=== PATIENT | female | born 1950 | race Caucasian/White ===

== ENCOUNTER → 2017-09-24 | Outpatient (CLI) | payer MEDICARE, OTHER ==
--- NOTE | 2017-09-24 12:08 | Diagnostic Imaging Report ---
PROCEDURE: X-RAY CHEST, TWO VIEWS COMPARISON: None. INDICATIONS: CHRONIC COUGH FINDINGS: The lungs are well-inflated. No focal airspace consolidation, pleural effusion, or pneumothorax. Mild atherosclerotic calcification of the thoracic aorta. Normal heart size. No pulmonary edema. No acute osseous abnormality. Surgical clips project over the upper abdomen on the lateral radiograph, likely related to prior cholecystectomy. CONCLUSION: No acute cardiopulmonary abnormality. Dictated by: Vaibhav Schmitz M.D. on 09/24/2017 at 12:12 Electronically approved by: Vaibhav Schmitz M.D. on 09/24/2017 at 12:12
== END ==
LOC: RAD 11:39
PROVIDERS: ATTEND Family Medicine
DX: R05 Cough (principal)
CPT/HCPCS: 71046

== ENCOUNTER → 2017-11-17 | Outpatient (CLI) | payer MEDICARE, OTHER ==
[~2017-11-17] MED LIST: LORAZEPAM INJ 2 MG/ML VIAL ONE
--- NOTE | 2017-11-17 13:57 | Diagnostic Imaging Report ---
EXAMINATION: MRI of the brain without contrast. HISTORY: Chronic headaches, history of uterine cancer, numbness in feet and hands. COMPARISON: None. TECHNIQUE: Sagittal T2; axial DWI, T2, FLAIR, T1-IR, T2 gradient echo; coronal FLAIR. IMAGE QUALITY: Adequate. FINDINGS: Parenchyma: 1. Scattered and mildly confluent periventricular and pontine white matter T2 and FLAIR hyperintense foci, most likely nonspecific chronic microvascular ischemic changes. 2. Small chronic lacunar infarct in the body of the left caudate nucleus. 3. No mass, hemorrhage, acute or chronic infarcts. Skull: Unremarkable. Vessels: Expected flow voids present in the major arteries and dural sinuses. Extra-axial spaces: No abnormal signal intensity or mass effect. Brain volume: Within normal limits for age. Ventricles: No hydrocephalus or displacement. Foramen magnum: Unremarkable. Sella: Unremarkable. Paranasal / mastoid sinuses: Mild mucosal inflammatory thickening of the left frontal, bilateral ethmoidal and right maxillary sinuses, otherwise clear IMPRESSION: 1. Mild chronic microvascular ischemic changes, otherwise no intracranial abnormalities, particularly no evidence of metastatic disease. 2. Minimal mucosal inflammatory thickening of the paranasal sinuses. Signed by: Dr. Addie Perez M.D. on 11/17/2017 1:54 PM
== END ==
LOC: MRI 09:46
PROVIDERS: ATTEND Family Medicine
DX: R51 Headache (principal)
CPT/HCPCS: 70551; J2060

== ENCOUNTER → 2018-09-19 | Outpatient (CLI) | payer MEDICARE, OTHER ==
--- NOTE | 2018-09-19 14:03 | Diagnostic Imaging Report ---
EXAMINATION: CHEST 2 VIEWS INDICATION: Cough. Chest pain ^BRONCHITIS; R/O PNEUMONIA COMPARISON: None FINDINGS: TUBES and LINES: None. LUNGS: Lungs are well inflated. Perihilar peribronchial hazy opacity could be due to bronchitis There is no evidence of pneumonia or pulmonary edema. PLEURA: No pleural effusion or pneumothorax. HEART AND MEDIASTINUM: The cardiomediastinal silhouette is unremarkable. BONES AND SOFT TISSUES: No acute osseous lesion. Soft tissues are unremarkable. UPPER ABDOMEN: No free air under the diaphragm. IMPRESSION: Perihilar peribronchial hazy opacity could be due to bronchitis Signed by: Dr. Gallo Edwards M.D. on 09/19/2018 2:00 PM
== END ==
LOC: RAD 13:15
PROVIDERS: ATTEND Family Medicine
DX: R05 Cough (principal); J40 Bronchitis, not specified as acute or chronic
CPT/HCPCS: 71046

== ENCOUNTER → 2018-11-18 | Outpatient (CLI) | payer MEDICARE, OTHER ==
--- NOTE | 2018-11-18 14:50 | Diagnostic Imaging Report ---
Chest radiographs, 2 views Clinical indication: Cough, bronchitis Comparison: 09/19/2018 Findings: The heart is within normal limits in size. The mediastinal and hilar contours are unremarkable. There is again evidence of mild perihilar peribronchial thickening, left greater than right. There is no focal consolidation, sizable pleural effusion, or pneumothorax. No acute osseous abnormalities are identified. Impression: Mild perihilar peribronchial thickening which may be secondary to bronchitis. No focal consolidation. Signed by: James Live MD on 11/18/2018 2:46 PM
== END ==
LOC: RAD 13:46
PROVIDERS: ATTEND Family Medicine
DX: J40 Bronchitis, not specified as acute or chronic (principal)
CPT/HCPCS: 71046

== ENCOUNTER 2019-08-19 16:21 | Emergency (ER) | payer MEDICARE, OTHER ==
[~2019-08-19] VITALS: Ht 162.6 cm; Wt 83.9 kg
--- OUTSIDE RECORDS SUMMARY | 2019-08-19 16:23 | XMS REPORT ---
Author Author [facility] Organization [facility] Address 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 Allergies, Adverse Reactions, Alerts This patient has no known allergies or adverse reactions. Medications This patient has no known medications. Procedures This patient has no known procedures. Results Test Description Test Time Test Comments Results Result Comments Source CHEST 2 VIEWS 2019-01-11 15:19:00 [place] [address] Patient Name: EDUARDO BUTLER MR #: [id number] : 1950 Age/Sex: 68/F Req #: [id number] Adm Physician: Ordered by: REYNALDO CHANCE MD Report #: [id number] Location: [facility] Room/Bed: Procedure: [id number] DX/CHEST 2 VIEWS Exam Date: 01/11/19 Exam Time: 5087 REPORT STATUS: Signed EXAMINATION: CHEST 2 VIEWS INDICATION: COPD COMPARISON: Chest radiograph of 11/18/2018 FINDINGS: LINES/TUBES:None LUNGS:The lungs are well-inflated. No focal consolidation or pulmonary edema. PLEURA:No pleural effusion or pne umothorax. MEDIASTINUM:The cardiomediastinal silhouette appears normal in size and shape. BONES/SOFT TISSUES:No acute osseous injury. ABDOMEN:No free air under the diaphragm. IMPRESSION: No focal pneumonia or pulmonary edema. Signed by: Harish Mayer MD on 01/11/2019 3:20 PM Dictated By: HARISH MAYER MD 152 Transcribed By: ALVINO on 01/11/191519 COPY TO: REYNALDO CHANCE MD CHEST 2 VIEWS 2018-11-18 14:45:00 [place] [address] Patient Name: EDUARDO BUTLER MR #: [id number] : 1950 Age/Sex: 68/F Req #: [id number] Adm Physician: Ordered by: REYNALDO CHANCE MD Report #: [id number] Location: [facility] Room/Bed: Procedure: [id number] DX/CHEST 2 VIEWS Exam Date: 11/18/18 Exam Time: 1420 REPORT STATUS: Signed Chest radiographs, 2 views Clinical indication: Cough, bronchitis Comparison: 09/19/2018 Findings: The heart is within normal limits in size. The mediastinal and hilar contours are unremarkable. There is again evidence of mild perihilar peribronchial thickening, left greater than right. There is no focal consolidation, sizable pleural effusion, or pneumothorax. No acute osseous abnormalities are identified. Impression: Mild perihilar peribronchial thickening which may be secondary to bronchitis. No focal consolidation. Signed by: James Virgen MD on 11/18/2018 2:46 PM Dictated By: JAMES VIRGEN MD 1446 Transcribed By: ALVINO on 11/18/18 144 COPY TO: REYNALDO CHANCE MD CHEST 2 VIEWS 2018-09-19 13:59:00 [place] [address] Patient Name: EDUARDO BUTLER MR #: [id number] : 1950 Age/Sex: 68/F Req #: [id number] Adm Physician: Ordered by: REYNALDO CHANCE MD Report #: [id number] Location: [facility] Room/Bed: Procedure: [id number] DX/CHEST 2 VIEWS Exam Date: Exam Time: REPORT STATUS: Signed EXAMINATION: CHEST 2 VIEWS INDICATION: Cough. Chest pain BRONCHITIS; R/O PNEUMONIA COMPARISON: None FINDINGS: TUBES and LINES: None. LUNGS: Lungs are well inflated. Perihilar peribronchial hazy opacity could be due to bronchitis There is no evidence of pneumonia or pulmonary edema. PLEURA: No pleural effusion or pneumothorax. HEART AND MEDIASTINUM: The cardiomediastinal silhouette is unremarkable. BONES AND SOFT TISSUES: No acute osseous lesion. Soft tissues are unremarkable. UPPER ABDOMEN: No free air under the diaphragm. IMPRESSION: Perihilar peribronchial hazy opacity could be due to bronchitis Signed by: Dr. Tammi Edwards M.D. on 09/19/2018 2:00 PM Dictated By: TAMMI EDWARDS MD, MD 1400 Transcribed By: ALVINO on 09/19/18 1400 COPY TO: REYNALDO CHANCE MD MRI BRAIN WO 2017-11-17 13:23:00 [place] [address] Patient Name: EDUARDO BUTLER MR #: [id number] : 1950 Age/Sex: 67/F Req #: [id number] [facility] Physician: Ordered by: REYNALDO CHANCE MD Report #: [id number] Location: MRI Room/Bed: Procedure: [id number] MRI/MRI BRAIN WO Exam Date: Exam Time: REPORT STATUS: Signed EXAMINATION: MRI of the brain without contrast. HISTORY: Chronic headaches, history of uterine cancer, numbness in feet and hands. COMPARISON: None. TECHNIQUE: Sagittal T2; axial DWI, T2, FLAIR, T1-IR, T2 gradient echo; coronal FLAIR. IMAGE QUALITY: Adequate. FINDINGS: Parenchyma: 1. Scattered and mildly confluent periventricular and pontine white matter T2 and FLAIR hyperintense foci, most likely nonspecific chronic microvascular ischemic changes. 2. Small chronic lacunar infarct in the body of the left caudate nucleus. 3. No mass, hemorrhage, acute or chronic infarcts. Skull: Unremarkable. Vessels: Expected flow voids present in the major arteries and dural sinuses. Extra-axial spaces: No abnormal signal intensity or mass effect. Brain volume: Within normal limits for age. Ventricles: No hydrocephalus or displacement. Foramen magnum: Unremarkable. Sella: Unremarkable. Paranasal / mastoid sinuses: Mild mucosal inflammatory thickening of the left frontal, bilateral ethmoidal and right maxillary sinuses, otherwise clear IMPRESSION: 1. Mild chronic microvascular ischemic changes, otherwise no intracranial abnorma lities, particularly no evidence of metastatic disease. 2. Minimal mucosal inflammatory thickening of the paranasal sinuses. Signed by: Dr. Eliza Perez M.D. on 11/17/2017 1:54 PM Dictated By: ELIZA PEREZ MD 1232 Transcribed By: ALVINO on 11/17/17 8443 COPY TO: REYNALDO CHANCE MD CHEST 2 VIEWS 2017-09-24 12[facility]12:[facility] [place] [place] [address] Patient Name: EDUARDO BUTLER MR #: [id number] : 1950 Age/Sex: 67/F Req #: [id number] Adm Physician: Ordered by: REYNALDO CHANCE MD Report #: [id number] Location: [facility] Room/Bed: Procedure: [id number] DX/CHEST 2 VIEWS Exam Date: 09/24/17 Exam Time: 1130 REPORT STATUS: Signed PROCEDURE: X-RAY CHEST, TWO VIEWS COMPARISON: None. INDICATIONS: CHRONIC COUGH FINDINGS: The lungs are well-inflated. No focal airspace consolidation, pleural effusion, or pneumothorax. Mild atherosclerotic calcification of the thoracic aorta. Normal heart size. No pulmonary edema. No acute osseous abnormality. Surgical clips project over the upper abdomen on the lateral radiograph, likely related to prior cholecystectomy. CONCLUSION: No acute cardiopulmonary abnormality. Dictated by: Candie Chambers M.D. on 09/24/2017 at 12:12 Electronically approved by: Candie Chambers M.D. on 09/24/2017 at 12:12 Dictated By: CANDIE CHAMBERS MD 1212 Transcribed By: RAVINDER on 09/24/17 1212 COPY TO: REYNALDO CHANCE MD
--- NOTE | 2019-08-19 16:38 | Emergency Department Note ---
History of Present Illnes History of Present Illness History of Present Illness This is a 69 year old female instructed by PCP to come to the ED for evaluation of elevated BS of 700+ from OSH. Seen at bedside asymptomatic . [employer] Required: No Onset (how long ago): day(s) Radiation: non-radiation Severity: mild Onset quality: gradual Duration (how long): day(s) (1) Timing of current episode: constant Progression: unchanged Chronicity: new Relieving factors: none Exacerbating factors: none Associated symptoms: denies other symptoms Treatments prior to arrival: none Past Medical/Family History Physician Review I have reviewed the patient's past medical and family history. Any updates have been documented here. Past Medical History Recent Fever: No Clinical Suspicion of Infectio: No New/Unexplained Change in Ment: No Past Medical History: Hypertension Other Surgery: HEMORRHOIDECTOMY Social History Smoking Cessation: Never Smoker Alcohol Use: None Any Illegal Drug Use: No Other Last Tetanus: UTD Review of Systems Review of Systems Constitutional: no symptoms EENTM: no symptoms Cardiovascular: no symptoms Respiratory: no symptoms Gastrointestinal: no symptoms Genitourinary: no symptoms Musculoskeletal: no symptoms Neurological: no symptoms Psychological: no symptoms Endocrine: no symptoms Hematological/Lymphatic: no symptoms Review of other systems All other systems reviewed and negative. Physical Exam Related Data Allergies: Coded Allergies: No Known Allergies (Unverified , 12/20/14) Physical Exam CONSTITUTIONAL Constitutional: well-developed, well-nourished HENT HENT: normocephalic, atraumatic, oropharynx clear/moist, nose normal HENT L/R: left ext ear normal, right ext ear normal EYES Eyes: PERRL, conjunctivae normal NECK Neck: ROM normal PULMONARY Pulmonary: effort normal, breath sounds normal CARDIOVASCULAR Cardiovascular: regular rhythm, heart sounds normal, capillary refill normal, normal rate GASTROINTESTINAL Abdominal: soft, nontender, bowel sounds normal GENITOURINARY Genitourinary: exam deferred SKIN Skin: warm, dry MUSCULOSKELETAL Musculoskeletal: ROM normal NEUROLOGICAL Neurological: alert, oriented x 3, no gross motor or sensory deficits PSYCHOLOGICAL Psychological: mood/affect normal, judgement normal Results Laboratory Lab results reviewed: Yes Laboratory comments CBC: wnl CMP : Glucose elevated at 430 Critical Care Time Subsequent provider I assumed direction of critical care for this patient from another provider of my specialty. Assessment & Plan Assessment & Plan Final Impression: (1) Hyperglycemia Assessment & Plan Patient given bolus of IV 1 L NS fluid with 10 U insulin. repeat BS with improvement Depart Disposition: HOME, SELF-CARE Last Vital Signs Date Time Temp Pulse Resp B/P (MAP) Pulse Ox O2 Delivery O2 Flow Rate FiO2 08/19/19 17:40 99 08/19/19 16:32 97.8 75 18 158/75 Home Meds No Active Prescriptions or Reported Meds Medications in the ED Sodium Chloride 1,000 ml @ ud STK-MED ONCE .ROUTE ; Start 08/19/19 at 16:44; Stop 08/19/19 at 16:39; Status DC Sodium Chloride 1,000 ml @ 0 mls/hr Q0M STAT IV ; Start 08/19/19 at 16:39; Stop 08/19/19 at 16:40; Status DC Insulin Human Regular 100 unit STK-MED ONCE .ROUTE ; Start 08/19/19 at 16:45; Stop 08/19/19 at 16:40; Status DC Insulin Human Regular 10 unit ONCE STAT IV ; Start 08/19/19 at 16:39; Stop 08/19/19 at 16:49; Status DC Sodium Chloride 1,000 ml @ 0 mls/hr Q0M STAT IV Last administered on 08/19/19at 17:06; Admin Dose 999 MLS/HR; Start 08/19/19 at 16:50; Stop 08/19/19 at 16:51; Status DC Insulin Human Regular 10 unit ONCE STAT IV Last administered on 08/19/19at 17:06; Admin Dose 10 UNIT; Start 08/19/19 at 16:50; Stop 08/19/19 at 17:03; Status DC YANG COLLINS DO August 19, 2019 16:38
[2019-08-19] MEDS ORDERED: INSULIN REGULAR, HUMAN 100 UNIT/1 ML 3ML VIAL IV STA ×2 (16:39→16:50)
[2019-08-19] MEDS ORDERED: SODIUM CHLORIDE 0.9% 1000ML 1,000 ML IV STA ×2 (16:39→16:50)
--- NOTE | 2019-08-19 16:39 | NUR ---
PT REFUSED MEDICATIONS, IV AND FLUIDS AND LAB WORKS. STATED SHE ONLY WANTED HER GLUCOSE CHECKED PER HER PCP. DR COLLINS NOTIFIED. AFTER TAKING PATIENT REFUSAL FORM PT WAS ON THE PHONE WITH HER PCP AND DECIDED TO HAVE THE LAB, MEDS AND FLUIDS.
[2019-08-19] MEDS ORDERED: SODIUM CHLORIDE 0.9% 1000ML 1,000 ML ONE (16:44)
[2019-08-19] MEDS ORDERED: INSULIN REGULAR, HUMAN 100 UNIT/1 ML 3ML VIAL ONE (16:45)
[2019-08-19 17:40] VITALS: BP 140/78
== END 2019-08-19 17:40 | disposition home or self-care (01) ==
LOC: FSED 16:21
DX: R73.9 Hyperglycemia, unspecified (principal); I10 Essential (primary) hypertension
CPT/HCPCS: 80053; 81003; 85025; 96374; 99283; J1817; J7030

== ENCOUNTER → 2019-10-02 | Outpatient (CLI) | payer MEDICARE, OTHER ==
[~2019-10-02] MED LIST changes: +IOPAMIDOL 370 MG/ML 200 ML INFUS..BTL INJ ONE; -LORAZEPAM INJ 2 MG/ML VIAL ONE; +SODIUM CHLORIDE 0.9% 50ML 50 ML ONE
[2019-10-02 15:51] LABS: BLOOD UREA NITROGEN 12 mg/dL (7-26); BUN/CREATININE RATIO 17 (6-25); CREATININE, SERUM 0.69 mg/dL (0.57-1.11); EST GLOMERULAR FILTRATION RATE > 60 ML/MIN (60-)
--- NOTE | 2019-10-03 08:49 | Diagnostic Imaging Report ---
EXAM: CT Abdomen and Pelvis WITH intravenous contrast INDICATION: Epigastric abdominal pain COMPARISON: None. TECHNIQUE: Abdomen and pelvis were scanned utilizing a multidetector helical scanner from the lung base to the pubic symphysis after administration of IV contrast. Coronal and sagittal reformations were obtained. Routine protocol was performed. Scan was performed during portal venous phase. IV CONTRAST: 100mL of Isovue 370 ORAL CONTRAST: Water RADIATION DOSE: Total DLP: 630 mGy*cm Dose modulation, iterative reconstruction, and/or weight based adjustment of the mA/kV was utilized to reduce the radiation dose to as low as reasonably achievable. FINDINGS: LOWER THORAX: Normal. HEPATOBILIARY: No focal liver lesions. No biliary ductal dilation. Status post cholecystectomy. SPLEEN: No splenomegaly. PANCREAS: No focal masses or ductal dilatation. ADRENALS: No adrenal nodules. KIDNEYS/URETERS: 6 mm nonobstructive lateral right midpole calculus associated with a subcentimeter cyst. No hydronephrosis. No solid renal mass lesion. PELVIC ORGANS/BLADDER: Status post hysterectomy. PERITONEUM / RETROPERITONEUM: No free air or fluid. LYMPH NODES: No lymphadenopathy. VESSELS: Moderate atherosclerotic calcifications of the nonaneurysmal abdominal aorta and major branches. GI TRACT: Sliding hiatal hernia. Diverticulosis without CT evidence of diverticulitis. No abnormal bowel thickening. No bowel obstruction. Status post appendectomy. BONES AND SOFT TISSUES: No acute osseous injury. No suspicious lytic or blastic lesions. IMPRESSION: No acute findings in the abdomen or pelvis. Specifically, no CT evidence of pancreatitis. Sliding hiatal hernia. Diverticulosis. Signed by: Wen Houston MD on 10/03/2019 8:46 AM
== END ==
LOC: CT 14:52
PROVIDERS: ATTEND Internal Medicine Endocrinology, Diabetes & Metabolism
DX: E11.9 Type 2 diabetes mellitus without complications (principal); R10.13 Epigastric pain; Z91.89 Other specified personal risk factors, not elsewhere classified
CPT/HCPCS: 36415; 74177; 82565; 84520; Q9967

== ENCOUNTER 2020-06-22 14:34 | Emergency (ER) | payer MEDICARE, OTHER ==
[~2020-06-22] VITALS: Ht 167.6 cm; Wt 76.7 kg
[2020-06-22] MEDS ORDERED: FAMOTIDINE 20 MG/2 ML VIAL IV STA (15:11)
[2020-06-22] MEDS ORDERED: DONNATAL/LIDOCAINE/MAALOX 30 ML SUSP PO ONE (15:15)
[2020-06-22] MEDS ORDERED: KETOROLAC TROMETHAMINE 30 MG/ML VIAL IV ONE (15:15)
[2020-06-22] MEDS ORDERED: KETOROLAC TROMETHAMINE 30 MG/ML VIAL ONE (15:30)
[2020-06-22] MEDS ORDERED: MAGNESIUM/ALUMINUM/SIMETHICONE 30 ML UDC ONE (15:30)
[2020-06-22] MEDS ORDERED: LIDOCAINE VISC 2% SOLN 15 ML UDC ONE (15:30)
[2020-06-22] MEDS ORDERED: BELLADONNA ALK/PHENOBARBITAL 5 ML UDC ONE (15:30)
[2020-06-22] MEDS ORDERED: FAMOTIDINE 20 MG/2 ML VIAL IV ONE (15:31)
[2020-06-22] MEDS ORDERED: SODIUM CHLORIDE 0.9% 50ML 50 ML ONE (16:40)
[2020-06-22] MEDS ORDERED: IOPAMIDOL 370 MG/ML 200 ML INFUS..BTL INJ ONE (16:40)
[2020-06-22] MEDS ORDERED: CEPHALEXIN500 MG PO (18:04)
[2020-06-22 18:09] VITALS: BP 115/65
== END 2020-06-22 18:09 | disposition home or self-care (01) ==
LOC: FSED 14:57
DX: R10.11 Right upper quadrant pain (principal); I10 Essential (primary) hypertension
CPT/HCPCS: 74177; 80053; 82553; 84484; 85025; 85379; 93005; 96374; 96376; 99284; J1885; Q9967

== ENCOUNTER → 2020-09-02 | Day surgery (SDC) | payer MEDICARE, OTHER ==
[2020-08-29 12:25] LABS: BASOPHILS % 0.5 % (0.0-1.0); EOSINOPHILS # (AUTO) 0.7 (0.0-0.4); EOSINOPHILS % 12.3 % (0.0-6.0); HEMATOCRIT 35.9 % (34.2-44.1); HEMOGLOBIN 12.1 g/dL (12.0-16.0); LYMPHOCYTES # (AUTO) 1.6 (1.0-3.2); LYMPHOCYTES % 28.9 % (18.0-39.1); MEAN CORPUSCULAR HEMOGLOBIN 32.7 pg (28-32); MEAN CORPUSCULAR HGB CONC 33.7 g/dL (31-35); MONOCYTES # (AUTO) 0.5 (0.2-0.8); MONOCYTES % 9.3 % (4.4-11.3); NEUTROPHILS # (AUTO) 2.7 (2.1-6.9); NEUTROPHILS % 48.8 % (38.7-80.0); PLATELET COUNT 219 x10e3/uL (140-360); RED CELL DISTRIBUTION WIDTH 11.9 % (11.7-14.4)
[~2020-09-02] MED LIST changes: +ACIPHEX20 MG PO; +ALEVE220 M1 PO; +AMLODIPINE BESYL5 MG PO; +APPLE CIDER VI300 MG PO; +ATENOLOL50 MG PO; +BENICAR20 MG PO; +CEPHALEXIN500 MG PO; +CYMBALTA20 MG PO; +FENTANYL CITRATE/PF 100MCG/2 ML INJ ONE; +GLUCAGON FOR INJ 1 MG VIAL ONE; +HYDROCHLOROTHIA25 MG PO; +IBUPROFEN400 MG PO; -IOPAMIDOL 370 MG/ML 200 ML INFUS..BTL INJ ONE; +KETAMINE HCL INJ 50 MG/ML 10 ML VIAL ONE; +MIDAZOLAM HCL 2 MG/2 ML VIAL ONE; +NEURONTIN300 MG PO; +OZEMPIC1 MG/0.75 SC; +PANTOPRAZOLE SO40 MG PO; +PRAVACHOL40 MG PO; +PROPOFOL IV EMULSION 10 MG/ML 20 ML VIAL ONE; -SODIUM CHLORIDE 0.9% 50ML 50 ML ONE
[2020-09-02 16:14] LABS: WBC,FECAL (FECAL LACTOFERRIN) NEGATIVE (NEGATIVE)
[2020-09-02 16:50] VITALS: BP 108/62
[2020-09-03 10:06] LABS: C DIFFICILE TOXIN A&B AMP PROB NEGATIVE (NEGATIVE)
== END | disposition home or self-care (01) ==
LOC: OR 10:29
PROVIDERS: ATTEND Internal Medicine Gastroenterology
DX: K52.9 Noninfective gastroenteritis and colitis, unspecified (principal); D12.3 Benign neoplasm of transverse colon; K29.70 Gastritis, unspecified, without bleeding; K25.9 Gastric ulcer, unspecified as acute or chronic, without hemorrhage or perforation; K26.9 Duodenal ulcer, unspecified as acute or chronic, without hemorrhage or perforation; K22.8 Other specified diseases of esophagus; K21.9 Gastro-esophageal reflux disease without esophagitis; K20.90 Esophagitis, unspecified without bleeding; K44.9 Diaphragmatic hernia without obstruction or gangrene; K57.30 Diverticulosis of large intestine without perforation or abscess without bleeding; K62.89 Other specified diseases of anus and rectum; E11.9 Type 2 diabetes mellitus without complications; R06.02 Shortness of breath; I10 Essential (primary) hypertension; E78.5 Hyperlipidemia, unspecified; Z01.812 Encounter for preprocedural laboratory examination; Z20.822 Contact with and (suspected) exposure to COVID-19; Z68.34 Body mass index [BMI] 34.0-34.9, adult; Z80.0 Family history of malignant neoplasm of digestive organs
CPT/HCPCS: 36415 ×2; 43239; 43450; 45380; 45385; 82948; 83630; 83993; 85025; 87045; 87177; 87328; 87493; 88305; 88312; J1610; J2704; U0002; J2250; J3010

== ENCOUNTER → 2021-07-11 | Outpatient (CLI) | payer MEDICARE ==
[~2021-07-11] MED LIST changes: -FENTANYL CITRATE/PF 100MCG/2 ML INJ ONE; -GLUCAGON FOR INJ 1 MG VIAL ONE; -KETAMINE HCL INJ 50 MG/ML 10 ML VIAL ONE; -MIDAZOLAM HCL 2 MG/2 ML VIAL ONE; -PROPOFOL IV EMULSION 10 MG/ML 20 ML VIAL ONE
== END ==
LOC: RAD 12:03
PROVIDERS: ATTEND Family Medicine
DX: J40 Bronchitis, not specified as acute or chronic (principal)
CPT/HCPCS: 71046

== ENCOUNTER → 2021-08-18 | Outpatient (CLI) | payer MEDICARE | LOC: RAD 11:41 | PROVIDERS: ATTEND Family Medicine | DX: J40 Bronchitis, not specified as acute or chronic (principal) | CPT/HCPCS: 71046 ==

== ENCOUNTER → 2022-06-15 | Outpatient (CLI) | payer MEDICARE | LOC: RAD 11:07 | PROVIDERS: ATTEND Family Medicine | DX: Z12.31 Encounter for screening mammogram for malignant neoplasm of breast (principal); M85.88 Other specified disorders of bone density and structure, other site | CPT/HCPCS: 77067; 77080 ==

== ENCOUNTER 2022-07-04 14:46 | Emergency (ER) | payer MEDICARE ==
[~2022-07-04] VITALS: Ht 162.6 cm; Wt 77.1 kg
[2022-07-04] MEDS ORDERED: ONDANSETRON HCL INJ 2MG/ML 2ML 2 MG/ML VIAL IV STA (15:25)
[2022-07-04] MEDS ORDERED: ONDANSETRON HCL INJ 2MG/ML 2ML 2 MG/ML VIAL ONE (16:21)
[2022-07-04] MEDS ORDERED: CIPRO500 MG PO ×2 (17:20→17:42)
[2022-07-04] MEDS ORDERED: METRONIDAZOLE500 MG PO ×2 (17:20→17:42)
[2022-07-04] MEDS ORDERED: ONDANSETRON ODT4 MG PO ×2 (17:20→17:42)
[2022-07-04] MEDS ORDERED: NYSTATIN15 GM TOP ×2 (17:23→17:42)
[2022-07-04 17:29] VITALS: BP 130/78
== END 2022-07-04 17:39 | disposition home or self-care (01) ==
LOC: FSED 14:58
DX: R10.32 Left lower quadrant pain (principal); K57.32 Diverticulitis of large intestine without perforation or abscess without bleeding; B37.9 Candidiasis, unspecified
CPT/HCPCS: 74176; 80053; 81003; 85025; 99284; J2405

== ENCOUNTER 2022-08-18 12:54 | Inpatient (IN) | payer MEDICARE ==
[~2022-08-18] VITALS: Ht 162.6 cm; Wt 83.5 kg
[~2022-08-18 12:54] MED LIST changes: +CIPRO500 MG PO; +METRONIDAZOLE500 MG PO; +NYSTATIN15 GM TOP; +ONDANSETRON ODT4 MG PO
[2022-08-18] MEDS ORDERED: ONDANSETRON HCL INJ 2MG/ML 2ML 2 MG/ML VIAL IV STA (13:42)
[2022-08-18] MEDS ORDERED: SODIUM CHLORIDE 0.9% 1000ML 1,000 ML IV STA (13:42)
[2022-08-18] MEDS ORDERED: LACTATED RINGER'S 1,000 ML INJ ONE (13:45)
[2022-08-18] MEDS ORDERED: ONDANSETRON HCL INJ 2MG/ML 2ML 2 MG/ML VIAL IV PRN ×2 (13:45→14:15)
[2022-08-18] MEDS ORDERED: DICYCLOMINE HCL 20 MG/2 ML VIAL IM ONE (13:45)
[2022-08-18 14:16] LABS: BASOPHILS # (AUTO) 0.1 (0.0-0.1); BASOPHILS % 1.1 % (0.0-1.0); EOSINOPHILS # (AUTO) 0.4 (0.0-0.4); EOSINOPHILS % 8.4 % (0.0-6.0); HEMATOCRIT 35.8 % (34.2-44.1); HEMOGLOBIN 12.3 g/dL (12.0-16.0); LYMPHOCYTES # (AUTO) 1.6 (1.0-3.2); LYMPHOCYTES % 33.4 % (18.0-39.1); MEAN CORPUSCULAR HEMOGLOBIN 33.2 pg (28-32); MEAN CORPUSCULAR HGB CONC 34.4 g/dL (31-35); MEAN CORPUSCULAR VOLUME 96.8 fL (81-99); MONOCYTES # (AUTO) 0.3 (0.2-0.8); MONOCYTES % 6.4 % (4.4-11.3); NEUTROPHILS # (AUTO) 2.4 (2.1-6.9); NEUTROPHILS % 50.5 % (38.7-80.0); PLATELET COUNT 202 x10e3/uL (140-360); RED CELL DISTRIBUTION WIDTH 11.3 % (11.7-14.4)
[2022-08-18] MEDS ORDERED: METRONIDAZOLE 750MG/NS 150ML 150 ML IV STA (14:16)
[2022-08-18 14:30] LABS: CLARITY,URINE SL CLOUDY (CLEAR); COLOR,URINE YELLOW (YELLOW); KETONES,URINE NEGATIVE (NEGATIVE); LEUKOCYTE ESTERASE ,URINE TRACE (NEGATIVE); NITRITE,URINE NEGATIVE (NEGATIVE); PROTEIN,URINE DIPSTICK NEGATIVE (NEGATIVE)
[2022-08-18 14:31] LABS: URINE UROBILINOGEN 1 mg/dL (0.2 - 1)
[2022-08-18 14:35] LABS: ALBUMIN 3.6 g/dL (3.5-5.0); ALBUMIN/GLOBULIN RATIO 1.1 (0.8-2.0); ANION GAP 13.6 mmol/L (8-16); CALCIUM 9.3 mg/dL (8.4-10.2); CREATININE, SERUM 0.63 mg/dL (0.57-1.11); POTASSIUM 3.6 mmol/L (3.5-5.1)
[2022-08-18 14:41] LABS: BACTERIA,URINE FEW /HPF; MUCUS,URINE MODERATE (RARE); WBC,URINE (MAN) 0-5 /HPF (0-5)
[2022-08-18 15:04] VITALS: PULSE 78; RESP 18; O2SAT 96
[2022-08-18] MEDS: Morphine 4mg INJECTION 4 MG/ML INJ IV PRN ×2 (16:18→22:57)
[2022-08-18] MEDS: SODIUM CHLORIDE 0.9% 1000ML 1,000 ML IV SCH ×2 (16:19→22:25)
[2022-08-18] MEDS ORDERED: IOPAMIDOL 370 MG/ML 100 ML INFUS..BTL INJ ONE (18:21)
[2022-08-18 21:49] VITALS: BP 145/83; PULSE 87; RESP 18; TEMP 97.4; O2SAT 98
[2022-08-18 22:00] VITALS: BP 145/83; PULSE 87; RESP 18; TEMP 97.4; O2SAT 98
[2022-08-18 23:11] VITALS: BP 145/83; PULSE 87; RESP 18; TEMP 97.4; O2SAT 98
[2022-08-19] VITALS (8 sets, daily range): BP systolic 108–146; BP diastolic 69–81; PULSE 61–78; RESP 16–20; TEMP 97.2–98.4; O2SAT 95–99
[2022-08-19 06:13] LABS: BASOPHILS % 0.5 % (0.0-1.0); EOSINOPHILS # (AUTO) 0.5 (0.0-0.4); EOSINOPHILS % 8.1 % (0.0-6.0); HEMATOCRIT 35.3 % (34.2-44.1); LYMPHOCYTES # (AUTO) 1.6 (1.0-3.2); LYMPHOCYTES % 28.2 % (18.0-39.1); MEAN CORPUSCULAR HEMOGLOBIN 33.1 pg (28-32); MEAN CORPUSCULAR VOLUME 97.5 fL (81-99); MONOCYTES # (AUTO) 0.5 (0.2-0.8); MONOCYTES % 9.2 % (4.4-11.3); NEUTROPHILS % 53.8 % (38.7-80.0); PLATELET COUNT 186 x10e3/uL (140-360); RED BLOOD COUNT 3.62 x10e6/uL (3.6-5.1)
[2022-08-19] MEDS: SODIUM CHLORIDE 0.9% 1000ML 1,000 ML IV SCH ×2 (06:20→17:13)
[2022-08-19 06:30] LABS: ANION GAP 11.8 mmol/L (8-16); CALCIUM 8.9 mg/dL (8.4-10.2); CREATININE, SERUM 0.62 mg/dL (0.57-1.11); POTASSIUM 3.8 mmol/L (3.5-5.1)
[2022-08-19] MEDS ORDERED: DEXTROSE 50% SYRINGE 50 ML IV PRN (09:00)
[2022-08-19] MEDS: DULOXETINE HCL 20 MG DELAYED RELEASE PO SCH ×2 (09:14→17:13)
[2022-08-19] MEDS: GABAPENTIN 300 MG CAP PO SCH ×3 (09:14→21:24)
[2022-08-19] MEDS: ACETAMIN/BUTALBITAL/CAFFEINE TAB PO PRN (09:15)
[2022-08-19] MEDS: INSULIN LISPRO 100 UNIT/1 ML 3ML VIAL SQ SCH ×3 (11:30→21:00)
[2022-08-19] MEDS ORDERED: AMLODIPINE BESYLATE 5 MG TAB PO SCH (21:00)
[2022-08-19] MEDS ORDERED: ATENOLOL 50 MG TAB PO SCH (21:00)
[2022-08-19] MEDS ORDERED: OLMESARTAN 20 MG TAB PO SCH (21:00)
[2022-08-20 00:18] VITALS: BP 119/64; PULSE 70; RESP 22; TEMP 97.8; O2SAT 97
[2022-08-20 04:44] VITALS: BP 131/61; PULSE 77; RESP 20; TEMP 97.9; O2SAT 98
[2022-08-20] MEDS: ACETAMIN/BUTALBITAL/CAFFEINE TAB PO PRN (05:35)
[2022-08-20 05:45] LABS: BASOPHILS % 0.7 % (0.0-1.0); EOSINOPHILS # (AUTO) 0.4 (0.0-0.4); HEMOGLOBIN 11.5 g/dL (12.0-16.0); LYMPHOCYTES # (AUTO) 1.5 (1.0-3.2); LYMPHOCYTES % 33.6 % (18.0-39.1); MEAN CORPUSCULAR HEMOGLOBIN 33.3 pg (28-32); MEAN CORPUSCULAR HGB CONC 34.8 g/dL (31-35); MEAN CORPUSCULAR VOLUME 95.7 fL (81-99); MONOCYTES # (AUTO) 0.4 (0.2-0.8); MONOCYTES % 9.7 % (4.4-11.3); NEUTROPHILS % 46.8 % (38.7-80.0); PLATELET COUNT 175 x10e3/uL (140-360); RED BLOOD COUNT 3.45 x10e6/uL (3.6-5.1)
[2022-08-20 06:07] LABS: ANION GAP 12.6 mmol/L (8-16); CALCIUM 8.6 mg/dL (8.4-10.2); CREATININE, SERUM 0.59 mg/dL (0.57-1.11); POTASSIUM 3.6 mmol/L (3.5-5.1)
[2022-08-20] MEDS: SODIUM CHLORIDE 0.9% 1000ML 1,000 ML IV SCH (06:56)
[2022-08-20] MEDS: INSULIN LISPRO 100 UNIT/1 ML 3ML VIAL SQ SCH (07:30)
[2022-08-20 08:47] VITALS: BP 128/72; PULSE 65; RESP 21; TEMP 98.3; O2SAT 100
[2022-08-20] MEDS: GABAPENTIN 300 MG CAP PO SCH (09:27)
[2022-08-20] MEDS: DULOXETINE HCL 20 MG DELAYED RELEASE PO SCH (09:27)
[2022-08-20] MEDS ORDERED: PANTOPRAZOLE SOD 40 MG TABEC PO SCH (12:30)
[2022-09-03] MEDS ORDERED: CALCIUM PO (14:08)
== END 2022-08-20 13:19 | disposition home or self-care (01) | DRG 392 ==
LOC: ER 13:02 → ERHOLD 14:14 → MED/SURG3 21:59
PROVIDERS: ADMIT Internal Medicine; ATTEND Internal Medicine
DX: K57.32 Diverticulitis of large intestine without perforation or abscess without bleeding (principal); I10 Essential (primary) hypertension; E78.5 Hyperlipidemia, unspecified; Z20.822 Contact with and (suspected) exposure to COVID-19; Z90.49 Acquired absence of other specified parts of digestive tract; Z79.4 Long term (current) use of insulin
CPT/HCPCS: 0223U; 36415; 74177; 80048; 80053; 81001; 82948; 83690; 85025; 94799; 96361; 99284; J0696; J2270; J2405; J7030; Q9967

== ENCOUNTER → 2022-09-11 | Day surgery (SDC) | payer MEDICARE ==
[~2022-09-11] MED LIST changes: +CALCIUM PO; +HYOSCYAMINE SULFATE 0.5 MG/ML INJ ONE; +LACTATED RINGER'S 1,000 ML ONE; +PROPOFOL IV EMULSION 10 MG/ML 20 ML VIAL ONE; +PROPOFOL IV EMULSION 10 MG/ML 50 ML VIAL IV ONE
[2022-09-11 10:30] VITALS: TEMP 97.6
[2022-09-11 11:00] VITALS: BP 148/84; PULSE 74; RESP 16; O2SAT 97
== END | disposition home or self-care (01) ==
LOC: OR 07:04
PROVIDERS: ATTEND Internal Medicine Gastroenterology
DX: K57.92 Diverticulitis of intestine, part unspecified, without perforation or abscess without bleeding (principal); D12.5 Benign neoplasm of sigmoid colon; D12.2 Benign neoplasm of ascending colon; K62.1 Rectal polyp; K29.50 Unspecified chronic gastritis without bleeding; K20.90 Esophagitis, unspecified without bleeding; K44.9 Diaphragmatic hernia without obstruction or gangrene; K64.8 Other hemorrhoids; E11.9 Type 2 diabetes mellitus without complications; I10 Essential (primary) hypertension; E78.5 Hyperlipidemia, unspecified; J44.9 Chronic obstructive pulmonary disease, unspecified; F32.A Depression, unspecified; Z01.810 Encounter for preprocedural cardiovascular examination; Z79.85 Long-term (current) use of injectable non-insulin antidiabetic drugs; Z79.899 Other long term (current) drug therapy; Z80.0 Family history of malignant neoplasm of digestive organs
CPT/HCPCS: 36415; 43239; 45385; 82948; 88305; 88342; 93005; C9113; J1980; J2704 ×2; J7121; 45378; 45380

== ENCOUNTER → 2023-10-21 | Outpatient (REF) | payer MEDICARE ==
[~2023-10-21] MED LIST changes: +CEFDINIR300 MG PO; -HYOSCYAMINE SULFATE 0.5 MG/ML INJ ONE; -LACTATED RINGER'S 1,000 ML ONE; +ONDANSETRON ODT4 MG SL; -PROPOFOL IV EMULSION 10 MG/ML 20 ML VIAL ONE; -PROPOFOL IV EMULSION 10 MG/ML 50 ML VIAL IV ONE; +PYRIDIUM200 MG PO
== END ==
LOC: RAD 10:52
DX: M54.2 Cervicalgia (principal); M54.50 Low back pain, unspecified; M25.562 Pain in left knee; M25.561 Pain in right knee; M79.672 Pain in left foot; M79.671 Pain in right foot
CPT/HCPCS: 72040; 72110

== ENCOUNTER → 2024-04-12 | Day surgery (SDC) | payer MEDICARE ==
[~2024-04-12] MED LIST changes: +DEXMEDETOMIDINE HCL 2 ML ONE; +EPHEDRINE SULFATE INJ 50 MG/ML VIAL ONE; +FAMOTIDINE 20 MG/2 ML VIAL IV ONE; +FENTANYL CITRATE/PF 100MCG/2 ML INJ ONE; +GLYCOPYRROLATE INJ 0.2 MG/ML VIAL ONE; +LIDOCAINE HCL 2% LOCAL INJ 5 ML SDV VIAL INJ ONE; +METOCLOPRAMIDE HCL 10 MG/2ML VIAL ONE; +PROPOFOL IV EMULSION 10 MG/ML 20 ML VIAL ONE
[2024-04-12 13:13] LABS: BASOPHILS # (AUTO) 0.1 (0.0-0.1); BASOPHILS % 1.1 % (0.0-1.0); EOSINOPHILS # (AUTO) 0.3 (0.0-0.4); HEMATOCRIT 39.9 % (34.2-44.1); HEMOGLOBIN 13.1 g/dL (12.0-16.0); LYMPHOCYTES # (AUTO) 1.2 (1.0-3.2); LYMPHOCYTES % 26.1 % (18.0-39.1); MEAN CORPUSCULAR HEMOGLOBIN 33.8 pg (28-32); MEAN CORPUSCULAR HGB CONC 32.8 g/dL (31-35); MEAN CORPUSCULAR VOLUME 102.8 fL (81-99); MONOCYTES # (AUTO) 0.6 (0.2-0.8); MONOCYTES % 12.8 % (4.4-11.3); NEUTROPHILS # (AUTO) 2.4 (2.1-6.9); NEUTROPHILS % 53.6 % (38.7-80.0); PLATELET COUNT 214 x10e3/uL (140-360); RED BLOOD COUNT 3.88 x10e6/uL (3.6-5.1); RED CELL DISTRIBUTION WIDTH 11.7 % (11.7-14.4); WHITE BLOOD COUNT 4.52 x10e3/uL (4.8-10.8)
[2024-04-12 13:53] VITALS: TEMP 97
[2024-04-12] MEDS: LACTATED RINGER'S 1,000 ML ONE (13:59)
[2024-04-12 14:20] VITALS: BP 112/68; PULSE 87; RESP 18; O2SAT 98
== END | disposition home or self-care (01) ==
LOC: OR 12:11
PROVIDERS: ATTEND Internal Medicine Gastroenterology
DX: K22.10 Ulcer of esophagus without bleeding (principal); K29.50 Unspecified chronic gastritis without bleeding; K21.9 Gastro-esophageal reflux disease without esophagitis; K44.9 Diaphragmatic hernia without obstruction or gangrene; R63.4 Abnormal weight loss; Z86.0100 Personal history of colon polyps, unspecified; R19.5 Other fecal abnormalities; R19.7 Diarrhea, unspecified; Z71.3 Dietary counseling and surveillance; E11.9 Type 2 diabetes mellitus without complications; I10 Essential (primary) hypertension; Z71.89 Other specified counseling; E78.5 Hyperlipidemia, unspecified; E66.01 Morbid (severe) obesity due to excess calories; R68.84 Jaw pain; M25.569 Pain in unspecified knee; F32.A Depression, unspecified; Z79.85 Long-term (current) use of injectable non-insulin antidiabetic drugs; Z79.1 Long term (current) use of non-steroidal anti-inflammatories (NSAID); Z79.899 Other long term (current) drug therapy; Z68.30 Body mass index [BMI] 30.0-30.9, adult; Z80.0 Family history of malignant neoplasm of digestive organs
CPT/HCPCS: 36415; 43239; 43450; 85025; 88305; 88342; 93005; J2003; J2470; J2704; J2765; J3010; J7121

== ENCOUNTER → 2024-04-21 | Outpatient (REF) | payer MEDICARE ==
[~2024-04-21] MED LIST changes: -DEXMEDETOMIDINE HCL 2 ML ONE; -EPHEDRINE SULFATE INJ 50 MG/ML VIAL ONE; -FAMOTIDINE 20 MG/2 ML VIAL IV ONE; -FENTANYL CITRATE/PF 100MCG/2 ML INJ ONE; -GLYCOPYRROLATE INJ 0.2 MG/ML VIAL ONE; +IOPAMIDOL 370 MG/ML 100 ML INFUS..BTL INJ ONE; -LIDOCAINE HCL 2% LOCAL INJ 5 ML SDV VIAL INJ ONE; -METOCLOPRAMIDE HCL 10 MG/2ML VIAL ONE; -PROPOFOL IV EMULSION 10 MG/ML 20 ML VIAL ONE
[2024-04-21 10:56] LABS: CREATININE, SERUM 0.68 mg/dL (0.57-1.11)
== END ==
LOC: CT 09:45
PROVIDERS: ATTEND Nurse Practitioner
DX: R10.10 Upper abdominal pain, unspecified (principal); R11.0 Nausea; K44.9 Diaphragmatic hernia without obstruction or gangrene; R19.7 Diarrhea, unspecified; R19.5 Other fecal abnormalities; R12 Heartburn
CPT/HCPCS: 36415; 74177; 82565; 84520; Q9967

== ENCOUNTER → 2024-05-18 | Outpatient (REF) | payer MEDICARE ==
[~2024-05-18] MED LIST changes: -IOPAMIDOL 370 MG/ML 100 ML INFUS..BTL INJ ONE
== END ==
LOC: DX 08:30
PROVIDERS: ATTEND Surgery
DX: K44.9 Diaphragmatic hernia without obstruction or gangrene (principal)
CPT/HCPCS: 74246; 74250

== ENCOUNTER 2024-06-19 08:03 | Inpatient (IN) | payer MEDICARE ==
[2024-06-13 14:39] LABS: BASOPHILS # (AUTO) 0.1 (0.0-0.1); BASOPHILS % 0.7 % (0.0-1.0); EOSINOPHILS # (AUTO) 1.3 (0.0-0.4); EOSINOPHILS % 16.4 % (0.0-6.0); HEMATOCRIT 38.2 % (34.2-44.1); HEMOGLOBIN 13.1 g/dL (12.0-16.0); LYMPHOCYTES # (AUTO) 1.3 (1.0-3.2); LYMPHOCYTES % 15.4 % (18.0-39.1); MEAN CORPUSCULAR HEMOGLOBIN 33.2 pg (28-32); MEAN CORPUSCULAR HGB CONC 34.3 g/dL (31-35); MEAN CORPUSCULAR VOLUME 96.7 fL (81-99); MONOCYTES # (AUTO) 0.6 (0.2-0.8); MONOCYTES % 7.4 % (4.4-11.3); NEUTROPHILS # (AUTO) 4.9 (2.1-6.9); NEUTROPHILS % 59.9 % (38.7-80.0); PLATELET COUNT 212 x10e3/uL (140-360); RED BLOOD COUNT 3.95 x10e6/uL (3.6-5.1); RED CELL DISTRIBUTION WIDTH 12.1 % (11.7-14.4); WHITE BLOOD COUNT 8.11 x10e3/uL (4.8-10.8)
[2024-06-13 15:10] LABS: ALBUMIN 3.6 g/dL (3.5-5.0); ANION GAP 13.3 mmol/L (8-16); BILIRUBIN,TOTAL 0.3 mg/dL (0.2-1.2); CALCIUM 9.8 mg/dL (8.4-10.2); CREATININE, SERUM 0.66 mg/dL (0.57-1.11); POTASSIUM 4.3 mmol/L (3.5-5.1); TOTAL PROTEIN 7.2 g/dL (6.5-8.1)
[~2024-06-19] VITALS: Ht 162.6 cm; Wt 75.5 kg
[~2024-06-19 08:03] MED LIST changes: +CELEBREX200 MG PO
[2024-06-19] MEDS ORDERED: ROCURONIUM BROMIDE 1 ML IV ONE (11:38)
[2024-06-19] MEDS ORDERED: FENTANYL CITRATE/PF 100MCG/2 ML INJ ONE (11:38)
[2024-06-19] MEDS ORDERED: PROPOFOL IV EMULSION 10 MG/ML 20 ML VIAL ONE (11:39)
[2024-06-19] MEDS ORDERED: SODIUM CHLORIDE 0.9% INJ 10 ML VIAL ONE (11:47)
[2024-06-19 12:28] VITALS: PULSE 71; RESP 18; O2SAT 100
[2024-06-19] MEDS ORDERED: EPHEDRINE SULFATE INJ 50 MG/ML VIAL ONE ×2 (12:52→13:08)
[2024-06-19] MEDS: LACTATED RINGER'S 1,000 ML ONE (13:58)
[2024-06-19] MEDS ORDERED: DEXAMETHASONE SOD PHOS INJ 4 MG/ML SDV ONE (14:06)
[2024-06-19] MEDS ORDERED: ONDANSETRON HCL INJ 2MG/ML 2ML 2 MG/ML VIAL ONE (14:06)
[2024-06-19] MEDS ORDERED: HYDROMORPHONE 2MG/ML ONE (14:40)
[2024-06-19] MEDS ORDERED: KETAMINE 50MG/5ML SYR ONE (14:41)
[2024-06-19] MEDS ORDERED: GLYCOPYRROLATE INJ 0.2 MG/ML VIAL ONE (14:42)
[2024-06-19] MEDS ORDERED: NEOSTIGMINE 1 MG/ML 10ML VIAL ONE (14:42)
[2024-06-19] MEDS ORDERED: ACETAMINOPHEN 1000 MG/100 ML 100 ML IV ONE (14:45)
[2024-06-19] MEDS ORDERED: SEVOFLURANE INHAL SOLN 250 ML PEN BTL ONE (14:52)
[2024-06-19 16:37] VITALS: BP 153/82; PULSE 54; RESP 19; TEMP 97.9; O2SAT 99
[2024-06-19 17:34] VITALS: BP 153/82; PULSE 54; RESP 19; TEMP 97.9; O2SAT 99
[2024-06-19] MEDS: SODIUM CHLORIDE 0.9% 250ML IRRIG IR SCH (17:50)
[2024-06-19] MEDS: SODIUM CHLORIDE 0.9% 1000ML 1,000 ML IV SCH (17:50)
[2024-06-19] MEDS: ALBUTEROL/IPRATROPIUM 3 ML NEB ONE (18:13)
[2024-06-19 20:00] VITALS: BP_SYST 140; BP_SYST 145; BP_DIAS 70; BP_DIAS 74; PULSE 106; PULSE 74; RESP 16; TEMP 97.5; O2SAT 99
[2024-06-19] MEDS: ACETAMINOPHEN 1000 MG/100 ML IV PRN (21:15)
[2024-06-19] MEDS: ATENOLOL 50 MG TAB PO SCH (21:15)
[2024-06-19 22:00] VITALS: BP 140/70; PULSE 106; RESP 16; TEMP 97.5; O2SAT 99
[2024-06-19] MEDS: HYDROMORPHONE 1MG/1ML INJ IV PRN (22:36)
[2024-06-20] VITALS (7 sets, daily range): BP systolic 121–159; BP diastolic 68–94; PULSE 65–105; RESP 18–20; TEMP 97.3–98.2; O2SAT 93–98
[2024-06-20 05:57] LABS: BASOPHILS % 0.1 % (0.0-1.0); EOSINOPHILS # (AUTO) 0.1 (0.0-0.4); EOSINOPHILS % 1.2 % (0.0-6.0); HEMATOCRIT 36.3 % (34.2-44.1); HEMOGLOBIN 12.3 g/dL (12.0-16.0); LYMPHOCYTES # (AUTO) 0.6 (1.0-3.2); MEAN CORPUSCULAR HEMOGLOBIN 33.1 pg (28-32); MEAN CORPUSCULAR HGB CONC 33.9 g/dL (31-35); MEAN CORPUSCULAR VOLUME 97.6 fL (81-99); MONOCYTES # (AUTO) 0.3 (0.2-0.8); MONOCYTES % 3.6 % (4.4-11.3); NEUTROPHILS # (AUTO) 7.4 (2.1-6.9); NEUTROPHILS % 87.7 % (38.7-80.0); PLATELET COUNT 191 x10e3/uL (140-360); RED BLOOD COUNT 3.72 x10e6/uL (3.6-5.1); RED CELL DISTRIBUTION WIDTH 11.7 % (11.7-14.4); WHITE BLOOD COUNT 8.39 x10e3/uL (4.8-10.8)
[2024-06-20 06:30] LABS: ANION GAP 14.5 mmol/L (8-16); CALCIUM 8.8 mg/dL (8.4-10.2); CREATININE, SERUM 0.62 mg/dL (0.57-1.11); POTASSIUM 4.5 mmol/L (3.5-5.1)
[2024-06-20] MEDS ORDERED: PRAVASTATIN SOD40 MG (10:36)
[2024-06-20] MEDS: ATENOLOL 50 MG TAB PO SCH (11:04)
[2024-06-20] MEDS: ONDANSETRON HCL INJ 2MG/ML 2ML 2 MG/ML VIAL IV PRN (12:03)
[2024-06-20] MEDS: GABAPENTIN 300 MG CAP PO SCH (18:22)
[2024-06-20] MEDS: OLMESARTAN 20 MG TAB PO SCH (20:37)
[2024-06-20] MEDS: CEPACOL SORE THROAT LOZENGES PO PRN (20:37)
[2024-06-20] MEDS: CHLORASEPTIC SPRAY 177 ML BTL MM PRN (20:38)
[2024-06-20] MEDS: HYDROCODONE/APAP 7.5MG-325MG 1 EA TAB PO PRN (22:06)
[2024-06-21] VITALS: BP 128/75; PULSE 78; RESP 16; TEMP 97.5; O2SAT 94
[2024-06-21 05:39] VITALS: BP 124/64; PULSE 71; RESP 19; TEMP 97.2; O2SAT 92
[2024-06-21 06:05] LABS: BASOPHILS % 0.2 % (0.0-1.0); EOSINOPHILS # (AUTO) 0.1 (0.0-0.4); EOSINOPHILS % 0.8 % (0.0-6.0); HEMATOCRIT 32.9 % (34.2-44.1); LYMPHOCYTES # (AUTO) 1.5 (1.0-3.2); LYMPHOCYTES % 14.9 % (18.0-39.1); MEAN CORPUSCULAR HEMOGLOBIN 33.2 pg (28-32); MEAN CORPUSCULAR HGB CONC 33.4 g/dL (31-35); MEAN CORPUSCULAR VOLUME 99.4 fL (81-99); MONOCYTES # (AUTO) 0.8 (0.2-0.8); MONOCYTES % 8.1 % (4.4-11.3); NEUTROPHILS # (AUTO) 7.4 (2.1-6.9); NEUTROPHILS % 75.6 % (38.7-80.0); PLATELET COUNT 182 x10e3/uL (140-360); RED BLOOD COUNT 3.31 x10e6/uL (3.6-5.1); WHITE BLOOD COUNT 9.81 x10e3/uL (4.8-10.8)
[2024-06-21 06:34] LABS: ANION GAP 11.9 mmol/L (8-16); CALCIUM 8.6 mg/dL (8.4-10.2); CREATININE, SERUM 0.57 mg/dL (0.57-1.11); POTASSIUM 3.9 mmol/L (3.5-5.1)
[2024-06-21 07:30] VITALS: BP 134/78; PULSE 76; RESP 19; TEMP 98; O2SAT 93
[2024-06-21 08:22] VITALS: BP 134/78; PULSE 76; RESP 18; TEMP 98; O2SAT 93
[2024-06-21 12:06] VITALS: BP 146/81; PULSE 79; RESP 18; TEMP 97.8; O2SAT 98
== END 2024-06-21 16:38 | disposition home or self-care (01) | DRG 328 ==
LOC: OR 08:03 → PACU V 14:51 → MED/SURG2 16:29
PROVIDERS: ADMIT Surgery; ATTEND Surgery
PROC: 0BQT4ZZ Repair Diaphragm, Percutaneous Endoscopic Approach (ICD-10-PCS; 2024-06-19)
PROC: 0DV44ZZ Restriction of Esophagogastric Junction, Percutaneous Endoscopic Approach (ICD-10-PCS; principal; 2024-06-19 12:38)
DX: K44.9 Diaphragmatic hernia without obstruction or gangrene (principal)
CPT/HCPCS: 36415; 71046; 80048; 80053; 82948; 85025; 94640; 94799; C1766; J1100; J1171; J2405; J2470; J2710; J7030

== ENCOUNTER → 2024-10-19 | Outpatient (REF) | payer MEDICARE ==
[~2024-10-19] MED LIST changes: +DIATRIZOATE MEGL/DIATRIZOA SOD 30 ML BTL PO ONE; +IOPAMIDOL 370 MG/ML 100 ML INFUS..BTL INJ ONE; +PRAVASTATIN SOD40 MG
[2024-10-19 16:28] LABS: EST GLOMERULAR FILTRATION RATE 90.0 ML/MIN (>=60)
== END ==
LOC: CT 15:49
PROVIDERS: ATTEND Nurse Practitioner
DX: R14.0 Abdominal distension (gaseous) (principal); R10.84 Generalized abdominal pain
CPT/HCPCS: 36415; 74177; 82565; 84520; Q9963; Q9967

== ENCOUNTER → 2024-12-15 | Outpatient (REF) | payer MEDICARE ==
[~2024-12-15] MED LIST changes: -DIATRIZOATE MEGL/DIATRIZOA SOD 30 ML BTL PO ONE; -IOPAMIDOL 370 MG/ML 100 ML INFUS..BTL INJ ONE
== END ==
LOC: RAD 08:08
PROVIDERS: ATTEND Family Medicine
DX: R06.89 Other abnormalities of breathing (principal); R06.2 Wheezing
CPT/HCPCS: 71046

== ENCOUNTER → 2024-12-18 | Outpatient (REF) | payer MEDICARE | LOC: MAMMO 11:48 | PROVIDERS: ATTEND Family Medicine | DX: Z12.31 Encounter for screening mammogram for malignant neoplasm of breast (principal); M85.88 Other specified disorders of bone density and structure, other site | CPT/HCPCS: 77067; 77080 ==

== ENCOUNTER → 2025-01-26 | Outpatient (REF) | payer MEDICARE | LOC: CT 09:13 | PROVIDERS: ATTEND Internal Medicine Pulmonary Disease | DX: J84.9 Interstitial pulmonary disease, unspecified (principal) | CPT/HCPCS: 71250 ==